=== PATIENT | female | born 1945 | race Caucasian/White ===

== ENCOUNTER → 2023-10-06 09:00 | Outpatient (REF) | payer OTHER, SELFPAY ==
[2023-10-06 12:52] LABS: % Basophils 0.8 % (0-2); % Eosinophils 2.4 % (0-6); % Immature Granulocytes 0.6 % (0-0.5); % Lymphocytes 39.4 % (20.5-51.1); % Monocytes 9.5 % (1.7-9.3); % Neutrophils 47.3 % (42.2-75.2); Absolute Eosinophils 0.1 10^3/uL (0-0.7); Absolute Monocytes 0.5 10^3/uL (0.1-0.6); Absolute Neutrophils 2.4 10^3/uL (1.4-6.5); Hematocrit 45.1 % (37.0-47.0); Hemoglobin 15.5 g/dL (12.0-16.0); Mean Corp Hgb Conc. 34.4 g/dL (33.0-37.0); Mean Corpuscular Hgb 30.5 pg (27.0-31.0); Mean Corpuscular Volume 88.6 fL (81.0-99.0); Mean Platelet Volume 10.5 fL (7.4-10.4); Nucleated Red Blood Cells % 0 %; Platelet Count 273 10^3/uL (130-400); Red Blood Cell Count 5.09 10^6/uL (4.20-5.40); Red Cell Dist. Width 13.1 % (11.5-14.5)
[2023-10-06 13:16] LABS: ALT (SGPT) 21 U/L (0-35); AST (SGOT) 31 U/L (14-36); Alkaline Phosphatase 82 U/L (38-126); Blood Urea Nitrogen 16 mg/dl (7-17); Carbon Dioxide 30 mmol/L (22-30); Chloride 103 mmol/L (98-107); Glucose 92 mg/dl (70-99); HDL Cholesterol 67 mg/dl; LDL Cholesterol, Calculated 84 mg/dl; Potassium 3.4 mmol/L (3.5-5.1); Sodium 137 mmol/L (135-145); Total Bilirubin 1.1 mg/dl (0.2-1.3); Total Cholesterol 186 mg/dl (50-199); Total Protein 6.8 g/dl (6.3-8.2); Triglyceride 175 mg/dl (10-149); Very Low Density Lipoprotein 35 mg/dl (0-30); eGFR > 60.00
[2023-10-06 13:46] LABS: TSH 0.19 uIU/ml (0.47-4.68)
== END ==
LOC: HWLAB 09:00
PROVIDERS: ATTENDING PHYSICIAN Internal Medicine
DX: E03.8 Other specified hypothyroidism (principal); R73.01 Impaired fasting glucose
CPT/HCPCS: 36415; 80053; 80061; 84443; 85025

== ENCOUNTER 2023-10-20 06:40 | Day surgery (SDC) | payer OTHER, SELFPAY ==
--- NOTE | 2023-09-16 13:10 | CM ---
Patient is scheduled for an elective R TKR on 10/20/23. Spoke with patient prior to surgery via telephone. Introduced role of Orthopedic Navigator. Patient reports that she lives with her in a one story home. There are four steps to enter.
She currently functions independently. She has a cane, raised toilet seat and rolling walker. She has never had VN services. PCP is Dr. Jessenia Kelly.
Discussed orthopedic program and post surgical plans. Reviewed anticipated length of stay and that goal is for her to return home at discharge. Also reviewed outpatient PT. Patient is in agreement with tentative plan and will go directly to
outpatient PT at [facility]. She will have support from her when she goes home.
Patient will complete online education.
Plan: Orthopedic Navigator will remain available to assist with the care of patient and will reassess discharge needs after surgery.
[2023-09-29 13:18] VITALS: BMI 35.5
[2023-09-29 13:46] LABS: Hematocrit 43.8 % (37.0-47.0); Hemoglobin 15.2 g/dL (12.0-16.0); Mean Corp Hgb Conc. 34.7 g/dL (33.0-37.0); Mean Corpuscular Hgb 30.4 pg (27.0-31.0); Mean Corpuscular Volume 87.6 fL (81.0-99.0); Mean Platelet Volume 10.2 fL (7.4-10.4); Platelet Count 282 10^3/uL (130-400); Red Cell Dist. Width 13.2 % (11.5-14.5); White Blood Cell Count 6.2 10^3/uL (4.8-10.8)
[2023-09-29 14:04] LABS: ALT (SGPT) 20 U/L (0-35); AST (SGOT) 31 U/L (14-36); Albumin 4.2 g/dl (3.5-5.0); Alkaline Phosphatase 86 U/L (38-126); Blood Urea Nitrogen 17 mg/dl (7-17); Calcium 8.9 mg/dl (8.4-10.2); Carbon Dioxide 29 mmol/L (22-30); Chloride 101 mmol/L (98-107); Estimated Creatinine Clearance 47 ml/min; Glucose 130 mg/dl (70-99); Potassium 3.6 mmol/L (3.5-5.1); Sodium 135 mmol/L (135-145); Total Bilirubin 0.8 mg/dl (0.2-1.3); Total Protein 6.9 g/dl (6.3-8.2); eGFR > 60.00
[2023-09-29 14:33] VITALS: BMI 35.5
[2023-09-29 14:49] LABS: Glycohemoglobin (HgbA1c) 6.1 % (4.0-5.6)
[2023-10-20] VITALS (17 sets, daily range): BP systolic 69–134; BP diastolic 40–113; BMI 35.5
[2023-10-20] MEDS: TYLENOL 650 MG PO ×4 (07:49→19:57)
[2023-10-20] MEDS: CELEBREX 200 MG PO (07:49)
[2023-10-20] MEDS: BACTROBAN NASAL 1 GRAM NASAL (07:58)
[2023-10-20] MEDS: NORMOSOL-R 1000 IV ×2 (08:10→12:19)
[2023-10-20 11:33] LABS: Glucose - Point of Care 85 mg/dl (70-99)
--- NOTE | 2023-10-20 13:09 | PTCARENOTE ---
Pt arrived to [facility] from PACU s/p R TKR. R knee Aquacel C/D/I, NV intact, on 2L NC satting 100%, IVF infusing. Pt states no pain at this time. Pt oriented to call shipley and room, bed locked and in lowest position, call shipley within reach.
[2023-10-20] MEDS: TYLENOL PO (14:58)
[2023-10-20] MEDS: DICLOFENAC 1% TOPICAL GEL 100 GRAM TOPICAL ×2 (15:25→21:19)
[2023-10-20] MEDS: ZOLOFT 50 MG PO (15:25)
[2023-10-20] MEDS: ASPIRIN 325 MG PO (17:07)
[2023-10-20] MEDS: ANCEF 5 IV (17:07)
[2023-10-20] MEDS: PRAVACHOL 40 MG PO (17:07)
[2023-10-20] MEDS: BACTROBAN 2% OINTMENT 1 APPLIC NASAL (19:54)
[2023-10-20] MEDS: SENOKOT 17.1999999999999993 MG PO (19:56)
[2023-10-20] MEDS: COLACE 100 MG PO (19:56)
[2023-10-20] MEDS: DECADRON 4 MG PO (19:57)
[2023-10-20] MEDS: TORADOL IV (19:57)
[2023-10-20] MEDS: TORADOL 15 MG IV (19:59)
[2023-10-20] MEDS: ULTRAM PO (20:30)
[2023-10-20] MEDS: NEURONTIN 300 MG PO (21:18)
[2023-10-20] MEDS: VALIUM 2 MG PO (21:18)
[2023-10-20] MEDS: PEPCID 20 MG PO (21:18)
[2023-10-21] MEDS: TYLENOL PO (00:10)
[2023-10-21] MEDS: TYLENOL 650 MG PO ×3 (00:28→08:01)
[2023-10-21] MEDS: ANCEF 5 IV (01:45)
[2023-10-21 03:16] VITALS: BP 127/52
[2023-10-21] MEDS: SYNTHROID 150 MCG PO (06:09)
[2023-10-21 07:17] LABS: Hepatitis C Antibody Negative (Negative)
[2023-10-21 07:49] VITALS: BP 114/70
[2023-10-21] MEDS: ULTRAM 25 MG PO (08:01)
[2023-10-21] MEDS: TORADOL 15 MG IV (08:01)
[2023-10-21] MEDS: CELEBREX 200 MG PO (08:01)
[2023-10-21] MEDS: COLACE 100 MG PO (08:01)
[2023-10-21] MEDS: DECADRON 4 MG PO (08:01)
[2023-10-21] MEDS: ASPIRIN 325 MG PO (08:01)
[2023-10-21] MEDS: BACTROBAN 2% OINTMENT 1 APPLIC NASAL (08:02)
[2023-10-21] MEDS: ZOLOFT 50 MG PO (08:02)
[2023-10-21] MEDS: DICLOFENAC 1% TOPICAL GEL 100 GRAM TOPICAL (08:02)
[2023-10-21] MEDS: SENOKOT 17.1999999999999993 MG PO (08:02)
--- NOTE | 2023-10-21 08:50 | CM ---
Addendum entered by Ramandeep Tyler 10/21/23 10:06:
Patient did well in therapy. She has no concerns about going home.
Original Note:
Reviewed chart and held rounds with PT, OT and nursing. Patient admitted as planned for elective R TKR. Met with patient at bedside. Confirmed information previously obtained for assessment. Also discussed discharge plans. The plan is for patient to
return home at discharge. She will have support from her when she goes home. Patient will go directly to outpatient PT and will go to [facility]. She has an appointment scheduled for Friday, 10/21.
Patient has a rolling walker, cane and raised toilet seat.
She will use [facility] pharmacy for discharge prescriptions.
Discharge plans were reviewed with patient's and son on 10/19.
--- NOTE | 2023-10-21 08:52 | W.PN.ORTHO ---
Today's Communication / Plan
-
d/c
Assessment
.
Distal Motor Intact: Yes
Dressing:
Clean, dry and intact.
Assessment:
Pain control-[place]
Plan
.
Surgery / Date: Adiel Merino 10/20/23
DVT Prophylaxis: Aspirin
Activity:
Out of bed.
PT/OT
Discharge Plan: Home w/ Outpatient PT
Subjective
.
.:
Patient resting comfortably.
Vital Signs and Labs
.
Vital Signs and Labs:
Lab Results
09/29/23 12:59
09/29/23 12:59
Temp Pulse Resp BP Pulse Ox
98.2 F 71 16 114/70 93
10/21/23 07:49 10/21/23 07:49 10/21/23 07:49 10/21/23 08:02 10/21/23 07:49
Non-invasive Hgb result: 16.1
Physical Exam
-
HEENT: No pallor, cyanosis, or jaundice. Throat clear.
NECK: Supple. No JVD.
RESPIRATORY: Lungs clear to auscultation.
CVS: S1, S2 normal. RRR.� No murmur, rub or gallop.
ABDOMEN: Soft, non-tender. No distension. BS+/normal.
EXTREMITIES: strength equal, no calf pain with palpation
CONVEYOR MAN: AOx3. No focal deficits. outside machinist helper grossly intact
--- NOTE | 2023-10-21 08:58 | W.DS.TRANS ---
DC Summary - [employer]
-
Discharge Instructions:
Sleep Apnea Risk Intermediate
Discharge Diagnosis/Procedures R TKA Dr. Merino 10/20/23
Diet Diabetic, Carb Controlled
Activity With Walker
Driving Restrictions No driving
Bathing Restrictions OK to Shower
Other Services PT
Instructions:
Stand-Alone Forms: Total Hip/Knee Replacement D/C
Changes to Home Medications: Yes
Discharge Medications:
DC Medications w/original date entered in [employer]
levothyroxine 150 mcg tablet 88 mcg PO DAILY 02/01/14
pravastatin 40 mg tablet 40 mg PO DAILY 02/01/14
sertraline 50 mg tablet 50 mg PO DAILY 02/01/14
docusate sodium 100 mg capsule 100 mg PO BID ##0 02/04/14
triamterene 37.5 mg-hydrochlorothiazide 25 mg capsule 1 cap PO DAILY ##0 02/04/14
famotidine 20 mg tablet 20 mg PO DAILY 09/23/23
mupirocin 2 % topical ointment 1 applic topical BID infection prevention #1 tube 09/29/23
magnesium 1 tab PO DAILY 10/20/23
Tylenol Extra Strength 1,000 mg PO QID ##0 10/21/23
aspirin 325 mg tablet 325 mg PO DAILY blood clot prevention #1 tab 10/21/23
celecoxib 200 mg capsule 200 mg PO DAILY anti-inflammatory #14 caps 10/21/23
diazepam 2 mg tablet 2 mg PO HS sleep/anxiety/muscle pain #1 tab 10/21/23
gabapentin 300 mg capsule 300 mg PO HS sleep/pain #10 caps 10/21/23
hydrocodone 5 mg-acetaminophen 325 mg tablet 1 tab PO Q6H PRN 1 tab moderate pain or 2 if severe #30 tabs 10/21/23
magnesium hydroxide 400 mg/5 mL oral suspension (Milk of Magnesia) 30 ml PO HS PRN Constipation #1 mL 10/21/23
melatonin 5 mg capsule 5 mg PO HS #0 caps 10/21/23
sennosides 8.6 mg tablet (Senokot) 17.2 mg PO BID laxative #2 tabs 10/21/23
Home Medication Changes
celecoxib 200 mg capsule 200 mg PO DAILY anti-inflammatory #14 caps 10/21/23
gabapentin 300 mg capsule 300 mg PO HS sleep/pain #10 caps 10/21/23
hydrocodone 5 mg-acetaminophen 325 mg tablet 1 tab PO Q6H PRN 1 tab moderate pain or 2 if severe #30 tabs 10/21/23
Pending Results: No
[2023-10-21 09:25] VITALS: BP 125/80; PULSE 72
[2023-10-21 09:30] VITALS: BP 125/81; PULSE 72; O2SAT 97
== END 2023-10-21 10:46 | disposition home or self-care (01) ==
LOC: SDS 06:40
PROVIDERS: ATTENDING PHYSICIAN Specialist; FAMILY PHYSICIAN Internal Medicine; OTHER PHYSICIAN Physician Assistant Medical
DX: M17.11 Unilateral primary osteoarthritis, right knee (principal); E66.9 Obesity, unspecified; Z68.35 Body mass index [BMI] 35.0-35.9, adult
CPT/HCPCS: 27447; 36415; 73560; 80053; 82962; 83036; 85027; 86803; 87070; 93005; 97110; 97116; 97162; 97166; 97535; C1713; C1776

== ENCOUNTER → 2024-04-21 09:10 | Outpatient (REF) | payer OTHER, SELFPAY ==
[2024-04-21 12:13] LABS: % Basophils 0.7 % (0-2); % Eosinophils 4.5 % (0-6); % Immature Granulocytes 0.7 % (0-0.5); % Lymphocytes 27.1 % (20.5-51.1); % Monocytes 11.7 % (1.7-9.3); % Neutrophils 55.3 % (42.2-75.2); Absolute Eosinophils 0.1 10^3/uL (0-0.7); Absolute Lymphocytes 0.8 10^3/uL (1.2-3.4); Absolute Monocytes 0.3 10^3/uL (0.1-0.6); Absolute Neutrophils 1.6 10^3/uL (1.4-6.5); Hematocrit 42.2 % (37.0-47.0); Hemoglobin 14.1 g/dL (12.0-16.0); Mean Corp Hgb Conc. 33.4 g/dL (33.0-37.0); Mean Corpuscular Hgb 28.8 pg (27.0-31.0); Mean Corpuscular Volume 86.3 fL (81.0-99.0); Mean Platelet Volume 10.1 fL (7.4-10.4); Nucleated Red Blood Cells % 0 %; Platelet Count 249 10^3/uL (130-400); Red Blood Cell Count 4.89 10^6/uL (4.20-5.40); Red Cell Dist. Width 14.1 % (11.5-14.5); White Blood Cell Count 2.9 10^3/uL (4.8-10.8)
[2024-04-21 12:40] LABS: ALT (SGPT) 17 U/L (0-35); AST (SGOT) 28 U/L (14-36); Albumin 3.8 g/dl (3.5-5.0); Alkaline Phosphatase 75 U/L (38-126); Blood Urea Nitrogen 17 mg/dl (7-17); Calcium 9.2 mg/dl (8.4-10.2); Carbon Dioxide 28 mmol/L (22-30); Chloride 104 mmol/L (98-107); Glucose 94 mg/dl (70-99); HDL Cholesterol 59 mg/dl; LDL Cholesterol, Calculated 91 mg/dl; Potassium 3.9 mmol/L (3.5-5.1); Sodium 144 mmol/L (135-145); Total Bilirubin 0.9 mg/dl (0.2-1.3); Total Cholesterol 188 mg/dl (50-199); Total Protein 6.5 g/dl (6.3-8.2); Triglyceride 193 mg/dl (10-149); Very Low Density Lipoprotein 38 mg/dl (0-30); eGFR > 60.00
[2024-04-21 13:58] LABS: Glycohemoglobin (HgbA1c) 5.6 % (4.0-5.6)
== END ==
LOC: HWLAB 09:10
PROVIDERS: ATTENDING PHYSICIAN Internal Medicine
DX: E78.5 Hyperlipidemia, unspecified (principal); R73.01 Impaired fasting glucose
CPT/HCPCS: 36415; 80053; 80061; 83036; 85025

== ENCOUNTER → 2024-07-30 14:19 | Outpatient (REF) | payer OTHER, SELFPAY | LOC: HWRAD 14:19 | PROVIDERS: ATTENDING PHYSICIAN Nurse Practitioner | DX: M25.552 Pain in left hip (principal) | CPT/HCPCS: 73502 ==

== ENCOUNTER → 2024-10-11 09:05 | Outpatient (REF) | payer OTHER, SELFPAY ==
[2024-10-11 12:05] LABS: TSH 0.46 uIU/ml (0.47-4.68)
== END ==
LOC: HWLAB 09:05
PROVIDERS: ATTENDING PHYSICIAN Internal Medicine
DX: E03.9 Hypothyroidism, unspecified (principal)
CPT/HCPCS: 36415; 84443

== ENCOUNTER → 2025-04-13 08:12 | Outpatient (REF) | payer OTHER, SELFPAY ==
[2025-04-13 11:58] LABS: Glycohemoglobin (HgbA1c) 5.6 % (4.0-5.6)
== END ==
LOC: HWLAB 08:12
PROVIDERS: ATTENDING PHYSICIAN Internal Medicine
DX: R73.01 Impaired fasting glucose (principal)
CPT/HCPCS: 36415; 83036

== ENCOUNTER → 2025-05-03 08:39 | Outpatient (REF) | payer OTHER, SELFPAY ==
[2025-05-03 12:38] LABS: Hematocrit 44.5 % (37.0-47.0); Hemoglobin 14.8 g/dL (12.0-16.0); Mean Corp Hgb Conc. 33.3 g/dL (33.0-37.0); Mean Corpuscular Volume 86.9 fL (81.0-99.0); Nucleated Red Blood Cells % 0 %; Platelet Count 287 10^3/uL (130-400); Red Cell Dist. Width 13.4 % (11.5-14.5)
[2025-05-03 13:09] LABS: ALT (SGPT) 21 U/L (0-35); AST (SGOT) 31 U/L (14-36); Albumin 4.0 g/dl (3.5-5.0); Alkaline Phosphatase 74 U/L (38-126); Blood Urea Nitrogen 14 mg/dl (7-17); Calcium 8.9 mg/dl (8.4-10.2); Carbon Dioxide 31 mmol/L (22-30); Chloride 103 mmol/L (98-107); Glucose 90 mg/dl (70-99); HDL Cholesterol 60 mg/dl; LDL Cholesterol, Calculated 80 mg/dl; Potassium 3.6 mmol/L (3.5-5.1); Sodium 139 mmol/L (135-145); Total Protein 6.9 g/dl (6.3-8.2); Very Low Density Lipoprotein 39 mg/dl (0-30); eGFR > 60.00
== END ==
LOC: HWLAB 08:39
PROVIDERS: ATTENDING PHYSICIAN Hospitalist
DX: I10 Essential (primary) hypertension (principal); Z00.00 Encounter for general adult medical examination without abnormal findings; E03.9 Hypothyroidism, unspecified; E78.2 Mixed hyperlipidemia; K21.9 Gastro-esophageal reflux disease without esophagitis
CPT/HCPCS: 36415; 80053; 80061; 84443; 85025